=== PATIENT | male | born 1995 | race Caucasian/White ===

== ENCOUNTER 2018-10-15 09:43 | Emergency (ER) | payer OTHER ==
[2018-10-15 09:50] VITALS: BP 144/88; PULSE 77; TEMP 98.4; BMI 22.4
[2018-10-15] MEDS ORDERED: IBUPROFEN 600 MG TABLET (FP) PO ONE ×2 (10:26→10:27)
[2018-10-15] MEDS ORDERED: CEFAZOLIN 1 GM/D5W 1 GM/50 ML BAG IVPB ONE (10:35)
--- NOTE | 2018-10-15 10:47 | PDOC ---
History of Present Illness - General Chief Complaint: Injury Stated Complaint: RT THUMB HAND INJURY Time Seen by Provider: 10/15/18 09:54 History Source: Patient Exam Limitations: No Limitations Past History - Past Medical History Allergies/Adverse Reactions: Allergies Allergy/AdvReac Type Severity Reaction Status Date / Time No Known Allergies Allergy Verified 10/15/18 09:50 Home Medications: Ambulatory Orders Cephalexin [Keflex] 500 mg PO QID #28 capsule 10/15/18 COPD: No - Suicide/Smoking/Psychosocial Hx Smoking History: Never smoked Hx Alcohol Use: Yes (OCCASIONALLY) Drug/Substance Use Hx: No *Physical Exam - Vital Signs Last Vital Signs Temp Pulse Resp BP Pulse Ox 98.4 F 77 16 144/88 99 10/15/18 09:47 10/15/18 09:47 10/15/18 09:47 10/15/18 09:47 10/15/18 09:47 - Physical Exam General Appearance: No: Apparent Distress Extremity: positive: Other (Nail impaled through R thumb, passing proximal phalanx, +swelling of R thumb and decreased range of motion, no erythema; no other evidence of trauma noted, RUE neurovascularly intact) Integumentary: negative: Erythema, Ecchymosis, Bruising Neurologic: positive: Alert, Normal Mood/Affect ED Treatment Course - RADIOLOGY Radiology Studies Ordered: Category Date Time Status FINGER(S) RIGHT [RAD] Stat Radiology 10/15/18 10:26 Taken Medical Decision Making - Medical Decision Making 23 y/o M with no sig pmh presents with R thumb injury from today. Was using a nail gun at work and states the nail went through his R thumb. Last tetanus was 5 years ago. Denies fever, numbness/tingling. Nail impaled R thumb R thumb xray - no fracture noted Given Motrin for pain Will give Ancef; attempting to reach Dr. Celso root to see if can see the patient Otherwise will have to transfer 10/15/18 10:46 Spoke to ivett Romero (with Dr. Houston) - advised to try pulling out on own End of nail was cut off with crossbar frame wirer Site cleaned with betadine and digital block performed Attempted to remove nail using needle emt driver but difficult to get out Spoke to ivett Romero - will come by to see patient 10/15/18 12:26 Nail removed by ortho SYEDA Romero - patient to f/u with Dr. Houston in 2 days Recommends Keflex for now x 7 days Stable for dc 10/15/18 14:03 *DC/Admit/Observation/Transfer Diagnosis at time of Disposition: Nail entering through skin Qualifiers: Encounter type: initial encounter Qualified Code(s): W45.0XXA - Nail entering through skin, initial encounter - Discharge Dispostion Disposition: HOME Condition at time of disposition: Stable Decision to Admit order: No - Prescriptions Prescriptions: Cephalexin [Keflex] 500 mg PO QID #28 capsule - Referrals Referrals: Huber Houston MD [Staff Physician] - 10/17/18 - Patient Instructions Additional Instructions: Thank you for choosing [facility]. It was a pleasure taking care of you. You may take Motrin 600 mg every 6 hours by mouth as needed for mild to moderate pain. Take Motrin with food. Take the antibiotics as prescribed as well Please follow-up in orthopedic clinic in 2 days Return to the Emergency Department if your symptoms worsen or persist, you have fever, redness, streaking, pustular discharge or other concerning symptoms. - Post Discharge Activity
[2018-10-15] MEDS ORDERED: LIDOCAINE HCL 1%, 10 MG/ML (20ML VIAL) ONE (11:28)
[2018-10-15] MEDS ORDERED: CEFAZOLIN 1 GM/D5W 1 GM/50 ML BAG ONE (11:28)
--- NOTE | 2018-10-15 11:38 | PDOC ---
*Physical Exam - Vital Signs Last Vital Signs Temp Pulse Resp BP Pulse Ox 98.4 F 77 16 144/88 99 10/15/18 09:47 10/15/18 09:47 10/15/18 09:47 10/15/18 09:47 10/15/18 09:47 ED Treatment Course - Medications Given in the ED: ED Medications Discontinued Medications Generic Name Dose Route Start Last Admin Trade Name Louis PRN Reason Stop Dose Admin Ibuprofen 600 mg 10/15/18 10:26 10/15/18 10:56 Motrin - PO 10/15/18 10:27 600 mg ONCE ONE Administration Medical Decision Making - Medical Decision Making 10/15/18 11:36 Pt is a 23 yo RHD M s/p nail gun injury to the left thumb Pt shot a nail through the proximal phalynx Tetanus UTD as of 5 years ago Call placed to hand image consultant They recommend pulling out the nail An additional call placed to hand surgeon to confirm this plan 10/15/18 14:14 Nail removed by Ortho D/c on Abx follow up with hand *DC/Admit/Observation/Transfer Diagnosis at time of Disposition: Nail entering through skin - Discharge Dispostion Disposition: HOME Condition at time of disposition: Stable - Prescriptions Prescriptions: Cephalexin [Keflex] 500 mg PO QID #28 capsule - Referrals Referrals: Huber Houston MD [Staff Physician] - 10/17/18 - Patient Instructions Additional Instructions: Thank you for choosing [facility]. It was a pleasure taking care of you. You may take Motrin 600 mg every 6 hours by mouth as needed for mild to moderate pain. Take Motrin with food. Take the antibiotics as prescribed as well Please follow-up in orthopedic clinic in 2 days Return to the Emergency Department if your symptoms worsen or persist, you have fever, redness, streaking, pustular discharge or other concerning symptoms. - Post Discharge Activity
--- NOTE | 2018-10-15 21:28 | CONSULT ---
Consult Consult Specialty:: orthopedics Reason for Consultation:: nail in thumb - History of Present Illness History of Present Illness: 23y/o male c/o right thumb pain after he accidentally shot a finishing nail through his thumb while at work earlier today. He c/o pain which is worse with motion and better with rest. He denies any numbness or tingling. There are no other associated, activating or reliving factors. Orthopedics was consulted after an attempted extraction of the foreign body was unsuccessful by the emergency department staff - History Source History Provided By: Patient - Alcohol/Substance Use Hx Alcohol Use: Yes (OCCASIONALLY) - Smoking History Smoking history: Never smoked Home Medications - Allergies Allergies/Adverse Reactions: Allergies Allergy/AdvReac Type Severity Reaction Status Date / Time No Known Allergies Allergy Verified 10/15/18 09:50 - Home Medications Home Medications: Ambulatory Orders Cephalexin [Keflex] 500 mg PO QID #28 capsule 10/15/18 Review of Systems - Review of Systems Constitutional: reports: No Symptoms Eyes: reports: No Symptoms HENT: reports: No Symptoms Neck: reports: No Symptoms Cardiovascular: reports: No Symptoms Respiratory: reports: No Symptoms Gastrointestinal: reports: No Symptoms Genitourinary: reports: No Symptoms Breasts: reports: No Symptoms Reported Musculoskeletal: reports: Extremity Pain Integumentary: reports: No Symptoms Neurological: reports: No Symptoms Endocrine: reports: No Symptoms Hematology/Lymphatic: reports: No Symptoms Psychiatric: reports: No Symptoms Physical Exam Vital Signs: Vital Signs Temperature 98.4 F 10/15/18 09:47 Pulse Rate 77 10/15/18 09:47 Respiratory Rate 16 10/15/18 09:47 Blood Pressure 144/88 10/15/18 09:47 O2 Sat by Pulse Oximetry (%) 99 10/15/18 09:47 Constitutional: Yes: Well Nourished, No Distress, Calm Musculoskeletal: Yes: Other (There is a finishing nail approx 4x2mm and 6cm in length extending from dorsal to volar just proximal to the IP joint. Sensation intact and Flexor and extensor tendons intact. No sign of infection. Mild edema of the thumb.) Imaging - Results X-ray: Report Reviewed, Image Reviewed (nail within the soft tissue of the proximal phalanx of the thumb. No penitration into the bone.) Assessment/Plan #1 right thumb foreign body -Discussed todays findings and treatment options with the patient. I recommend foreign body removal. He would like to proceed. The nail was cut at the distal end prior to arrival. Procedure, Removal of deep foreign body: The procedure site was identified. The thumb was anesthetized using 2% lidocaine. Once anaesthesia was obtained A plier was used to grab the nail. Using gentle traction the nail was removed from the thumb atraumatically in a retrograde fashion. The patient tolerated the procedure well. Sterile bandages were placed. This procedure was done under the direct supervision of Dr. Huber Houston. -Pt instructed to f/u in [address] Houston or sooner at ER if needed. All questions were answered.
== END 2018-10-15 14:30 | disposition home or self-care (01) ==
LOC: JER 09:43
DX: S61.041A Puncture wound with foreign body of right thumb without damage to nail, initial encounter (principal); W29.4XXA Contact with nail gun, initial encounter; Y93.H3 Activity, building and construction; Y92.61 Building [any] under construction as the place of occurrence of the external cause; Y99.0 Civilian activity done for income or pay
CPT/HCPCS: 73140-TC-RT-FY; 99282-25